=== PATIENT | female | born 1970 | race Asian ===

== ENCOUNTER 2022-03-16 12:07 | Emergency (ER) | payer OTHER ==
[2022-03-16] MEDS ORDERED: Bacitracin Oint 1 GM U/D Packet TOP ONE (12:36)
[2022-03-16] MEDS ORDERED: Lidocaine 1% 30 ML SDV INJECT ONE (12:36)
[2022-03-16] MEDS ORDERED: Diphtheria,Pertussis(Acell),Tetanus Vaccine 0.5 ML Syringe IM ONE (13:12)
== END 2022-03-16 13:24 | disposition home or self-care (01) ==
LOC: DL.ED 12:07
DX: S01.111A Laceration without foreign body of right eyelid and periocular area, initial encounter (principal); Z23 Encounter for immunization; W18.39XA Other fall on same level, initial encounter
CPT/HCPCS: 12013; 90471; 90715; 99282-25; 99283